=== PATIENT | male | born 1955 | race African-American/Black ===

== ENCOUNTER 2025-04-19 20:53 | Emergency (ER) | payer SELFPAY ==
[2025-04-19] MEDS ORDERED: diphenhydrAMINE 50 MG/ML VIAL ONE (20:57)
[2025-04-19] MEDS ORDERED: Famotidine/PF 20 mg/2ml Vial ONE (20:58)
[2025-04-19 21:21] LABS: Hematocrit 49.2 % (42.0-52.0); Hemoglobin 15.5 g/dL (14.0-18.0); MDiff Complete? YES; Mean Corpuscular Hemoglobin 26.8 pg (27.0-31.0); Mean Corpuscular Volume 85.1 fl (78.0-98.0); Platelet Count 352 10x3/uL (130-400); Red Blood Cell (RBC) Count 5.78 mill/uL (4.70-6.10); White Blood Cell (WBC) Count 4.3 10x3/uL (4.8-10.8)
[2025-04-19 21:27] LABS: ALT (SGPT) 21 U/L (Less than 45); AST (SGOT) 24 U/L (11-34); Albumin 3.9 g/dL (3.1-4.5); Alkaline Phosphatase 98 U/L (40-110); Anion Gap 17 mmol/L (10-20); BUN (Urea Nitrogen) 13 mg/dL (8.4-25.7); Bilirubin, Total 0.9 mg/dL (0.3-1.2); Calc. Creatinine Clearance 0 mL/min (70-130); Calcium 8.9 mg/dL (7.8-10.44); Carbon Dioxide 23 mmol/L (23-31); Chloride 106 mmol/L (98-107); Globulin 3.5 g/dL (2.4-3.5); Glucose 214 mg/dL (80-115); Potassium 3.7 mmol/L (3.5-5.1); Sodium 142 mmol/L (136-145)
[2025-04-19 21:28] LABS: Troponin I Less than 0.010 ng/mL (< 0.028)
== END 2025-04-20 04:43 | disposition home or self-care (01) ==
LOC: MADERS 20:53
DX: T78.19XA Other adverse food reactions, not elsewhere classified, initial encounter (principal); E11.9 Type 2 diabetes mellitus without complications; I10 Essential (primary) hypertension; Z79.84 Long term (current) use of oral hypoglycemic drugs; Z79.899 Other long term (current) drug therapy
CPT/HCPCS: 80053; 83605; 83880; 84484; 85025; 96372; 96374; 96375; J0169; J1200; J1308; J2919